=== PATIENT | male | born 1970 | race Caucasian/White ===

== ENCOUNTER → 2016-10-31 | Outpatient (CLI) | payer OTHER ==
[~2016-10-31] VITALS: Ht 182.9 cm; Wt 86.3 kg
[~2016-10-31] MED LIST: OXYC-57 PO; PRED20TA PO
[2016-10-31 12:35] VITALS: BP 102/69; PULSE 102; Ht 182.9 cm; Wt 86.3 kg
== END | disposition home or self-care (01) ==
LOC: C.NEUR 11:09
PROVIDERS: ATTEND Internal Medicine Pulmonary Disease
DX: R06.83 Snoring (principal); Z72.821 Inadequate sleep hygiene; F41.9 Anxiety disorder, unspecified

== ENCOUNTER → 2016-12-28 | Outpatient (CLI) | payer OTHER ==
[2016-12-28 10:50] LABS: CHOLESTEROL 178 mg/dl (0-200); GLUCOSE,FASTING 95 mg/dl (70-99)
[2016-12-28 10:53] LABS: ESTIMATED AVERAGE GLUCOSE 114 mg/dl; HA1C FLAG Normal (Normal)
[2016-12-28 11:03] LABS: CHOLESTEROL/HDL RATIO 6.4; HDL CHOLESTEROL 28 mg/dl; TRIGLYCERIDES 302 mg/dl (0-150); VERY LOW DENSITY LIPOPROT CALC 60 mg/dl
[2016-12-28 11:12] LABS: CALCULATED INSULIN SENSITIVITY 0.322; GLUCOSE LOG 1.9777; INSULIN FASTING 13.3 mU/L (3-25); INSULIN LOG 1.1239; PROLACTIN 5.79 ng/mL
== END | disposition home or self-care (01) ==
LOC: C.LAB1850 09:14
PROVIDERS: ATTEND Internal Medicine Endocrinology, Diabetes & Metabolism
DX: E78.1 Pure hyperglyceridemia (principal); E29.1 Testicular hypofunction

== ENCOUNTER → 2017-09-11 | Outpatient (CLI) | payer OTHER ==
[2017-09-11 13:42] LABS: BASO % 0.1 %; BASO ABS # 0.01 K/uL (0-0.2); COMPLETE YES; EOS % 1.6 %; HEMATOCRIT 48.9 % (42-52); IG% 0.3 %; LYMPH % 26.7 %; LYMPH ABS # 2.34 K/uL (1.2-3.4); MEAN CELL VOLUME 93.5 fL (80-100); MEAN CORPUSCULAR HEMOGLOBIN 31.7 pg (25-34); MEAN CORPUSCULAR HGB CONC 33.9 g/dl (32-36); MEAN PLATELET VOLUME 10.3 fL (7.4-10.4); MONO % 12.6 %; NEUT % 58.7 %; PLATELET COUNT 236 K/uL (130-400); RED BLOOD COUNT 5.23 M/uL (4.7-6.1); WHITE BLOOD COUNT 8.75 K/uL (4.8-10.8)
[2017-09-11 13:58] LABS: ALT/SGPT 27 U/L (12-78); BLOOD UREA NITROGEN 11 mg/dl (7-18); CALCIUM 9.4 mg/dl (8.5-10.1); CARBON DIOXIDE 29 mmol/L (21-32); CHLORIDE 102 mmol/L (98-107); CHOLESTEROL 203 mg/dl (0-200); CREATININE 0.85 mg/dl (0.60-1.40); GLUCOSE 96 mg/dl (70-99); POTASSIUM 4.2 mmol/L (3.5-5.1); SODIUM 138 mmol/L (136-145)
[2017-09-11 14:08] LABS: ALKALINE PHOSPHATASE 77 U/L (45-117); AST/SGOT 14 U/L (15-37); CHOLESTEROL/HDL RATIO 8.8; HDL CHOLESTEROL 23 mg/dl; THYROID STIMULATING HORMONE 0.654 uIu/ml (0.300-4.500); TRIGLYCERIDES 550 mg/dl (0-150)
== END | disposition home or self-care (01) ==
LOC: C.LABBC 09:36
PROVIDERS: ATTEND Neuromusculoskeletal Medicine & OMM
DX: Z00.00 Encounter for general adult medical examination without abnormal findings (principal); E55.9 Vitamin D deficiency, unspecified; E78.1 Pure hyperglyceridemia